=== PATIENT | female | born 1950 | race African-American/Black ===

== ENCOUNTER 2019-05-08 03:11 | Emergency (ER) | payer MEDICARE, MEDICAID ==
[~2019-05-08] VITALS: Ht 162.6 cm; Wt 51.0 kg
[~2019-05-08 03:11] MED LIST: ALBU6.7H INH; AZAT50TA24 PO; CARI-166 MT; FAMO40TA70 MT; HYDR200T35 PO; P20 MT
[2019-05-08] MEDS ORDERED: MORPHINE SULFATE 4 MG/ML CPJ (NOT FOR IM USE) IV STA (04:08)
[2019-05-08] MEDS ORDERED: ONDANSETRON HCL 4MG/2ML INJ IV STA (04:08)
[2019-05-08 06:52] VITALS: BP 128/83
== END 2019-05-08 06:55 | disposition home or self-care (01) ==
LOC: ER 03:11
DX: G89.29 Other chronic pain (principal); J44.9 Chronic obstructive pulmonary disease, unspecified; I10 Essential (primary) hypertension; M32.9 Systemic lupus erythematosus, unspecified; Z88.6 Allergy status to analgesic agent; Z88.1 Allergy status to other antibiotic agents; Z88.3 Allergy status to other anti-infective agents; Z88.0 Allergy status to penicillin; Z90.49 Acquired absence of other specified parts of digestive tract
CPT/HCPCS: 96374; 96375; 99283; J2270; J2405

== ENCOUNTER 2019-08-31 10:17 | Inpatient (IN) | payer MEDICARE, MEDICAID ==
[~2019-08-31] VITALS: Ht 170.2 cm; Wt 60.3 kg
[~2019-08-31 10:17] MED LIST changes: -FAMO40TA70 MT; -P20 MT
[2019-08-31] MEDS ORDERED: METHYLPREDNISOLONE SOD SUCC 125 MG/2 ML VIAL IV STA (10:33)
[2019-08-31] MEDS ORDERED: MAGNESIUM 2 G PREMIX 50 ML IV STA (10:33)
[2019-08-31] MEDS ORDERED: IPRATROPIUM BROMIDE (0.02%) 0.5MG/2.5ML NEB HHN STA (10:43)
[2019-08-31] MEDS ORDERED: ALBUTEROL (0.083%) 2.5MG/3ML NEB HHN STA (10:43)
[2019-08-31] MEDS ORDERED: LEVOFLOXACIN 500MG PREMIX 100 ML IV ONE (11:30)
[2019-08-31] MEDS ORDERED: MORPHINE SULFATE 4 MG/ML CPJ (NOT FOR IM USE) IV ONE (11:30)
[2019-08-31] MEDS ORDERED: ONDANSETRON HCL 4MG/2ML INJ IV ONE (11:30)
[2019-08-31 11:31] LABS: BASOPHILS % 0.9 % (0.0-2.0); EOSINOPHILS % 0.8 % (0.0-5.0); HEMOGLOBIN. 11.8 g/dL (12.0-16.0); LYMPHOCYTES % 35.5 % (20.0-50.0); MEAN CORPUSCULAR HEMOGLOBIN 26.4 pg (28.0-32.0); MEAN CORPUSCULAR VOLUME 82.9 fL (81.0-99.0); MEAN PLATELET VOLUME 7.2 fl (7.4-10.4); MONOCYTES % 13.7 % (2.0-8.0); NEUTROPHILS % 49.1 % (40.0-76.0); PLATELET 366 x1000/uL (130-400); RED BLOOD CELL COUNT 4.46 mill/uL (4.2-5.4); RED CELL DISTRIBUTION WIDTH 20.9 % (11.6-14.6)
[2019-08-31 11:37] LABS: CHLORIDE 111 mEq/L (98-107); INR 1.1; PROTHROMBIN TIME 11.7 sec (9.6-11.0)
[2019-08-31 12:17] LABS: CLARITY URINE CLEAR (CLEAR); COLOR URINE YELLOW (YELLOW); KETONES URINE NEGATIVE (NEGATIVE); LEUKOCYTE ESTERASE URINE NEGATIVE (NEGATIVE); NITRITE URINE NEGATIVE (NEGATIVE); OCCULT BLOOD URINE NEGATIVE (NEGATIVE); PH URINE 5.5 (4.5-8.0); PROTEIN URINE TRACE (NEGATIVE); SPECIFIC GRAVITY URINE 1.019 (1.005-1.030)
[2019-08-31 13:09] LABS: *AMPHETAMINES SCREEN URINE NEGATIVE (NEGATIVE); *BARBITURATES SCREEN URINE NEGATIVE (NEGATIVE); *BENZODIAZEPINES SCREEN URINE NEGATIVE (NEGATIVE); *COCAINE SCREEN URINE NEGATIVE (NEGATIVE)
[2019-08-31 13:11] LABS: CANNABINOID URINE SCREEN NEGATIVE (NEGATIVE); METHADONE URINE SCREEN NEGATIVE (NEGATIVE); OPIATES URINE SCREEN PRESUMTIVE POSITIVE (NEGATIVE); PHENCYCLIDINE URINE SCREEN NEGATIVE (NEGATIVE)
[2019-08-31 14:25] VITALS: BP 133/76
[2019-08-31 15:00] VITALS: BP 133/76
[2019-08-31 16:00] VITALS: BP 139/71
[2019-08-31] MEDS ORDERED: DIPHENHYDRAMINE 50MG/ML VIAL IV PRN (17:45)
[2019-08-31 17:53] VITALS: BP 142/75
[2019-08-31] MEDS: MORPHINE SULFATE 2 MG/ML CPJ (NOT FOR IM USE) IV PRN ×2 (17:55→22:09)
[2019-08-31] MEDS ORDERED: OXYC30TA89 MT (18:05)
[2019-08-31] MEDS: SODIUM CHLORIDE 0.9% 1,000 ML IV SCH (19:23)
[2019-08-31] MEDS ORDERED: DOCUSATE SODIUM 100MG CAPSULE PO PRN (19:30)
[2019-08-31] MEDS ORDERED: GUAIFENESIN 200MG/10ML SUGAR FREE UDC PO PRN (19:30)
[2019-08-31] MEDS ORDERED: ACETAMINOPHEN 325MG TABLET PO PRN (19:30)
[2019-08-31] MEDS ORDERED: ONDANSETRON HCL 4MG/2ML INJ IV PRN (19:30)
[2019-08-31 20:00] VITALS: BP 122/72
[2019-08-31] MEDS: METHYLPREDNISOLONE SOD SUCC 40 MG/ML VIAL IV SCH (21:05)
[2019-08-31] MEDS: ENOXAPARIN 40MG/0.4ML SYR SUBCUT SCH (21:07)
[2019-08-31] MEDS: CARISOPRODOL 350 MG TABLET PO PRN (21:07)
[2019-09-01] VITALS (7 sets, daily range): BP systolic 111–142; BP diastolic 62–78
[2019-09-01 00:42] LABS: CREATINE KINASE 91 IU/L (26-192)
[2019-09-01 00:44] LABS: CREATINE KINASE MB FRACTION 1.7 ng/mL (0.5-3.6)
[2019-09-01] MEDS: MORPHINE SULFATE 2 MG/ML CPJ (NOT FOR IM USE) IV PRN ×2 (02:22→06:43)
[2019-09-01] MEDS: METHYLPREDNISOLONE SOD SUCC 40 MG/ML VIAL IV SCH ×3 (02:22→20:20)
[2019-09-01 07:15] LABS: BASOPHILS % 2.4 % (0.0-2.0); EOSINOPHILS % 0.3 % (0.0-5.0); HEMATOCRIT. 34.8 % (36.0-48.0); HEMOGLOBIN. 11.4 g/dL (12.0-16.0); LYMPHOCYTES % 20.7 % (20.0-50.0); MEAN CORPUSCULAR HEMOGLOBIN 26.8 pg (28.0-32.0); MEAN CORPUSCULAR VOLUME 81.8 fL (81.0-99.0); MEAN PLATELET VOLUME 7.7 fl (7.4-10.4); MONOCYTES % 7.5 % (2.0-8.0); NEUTROPHILS % 69.1 % (40.0-76.0); PLATELET 331 x1000/uL (130-400); RED BLOOD CELL COUNT 4.26 mill/uL (4.2-5.4); RED CELL DISTRIBUTION WIDTH 20.6 % (11.6-14.6)
[2019-09-01] MEDS: IPRATROPIUM/ALBUTEROL 0.5-3(2.5)MG/3ML NEB HHN SCH ×4 (07:36→20:39)
[2019-09-01 07:38] LABS: CHLORIDE 112 mEq/L (98-107)
[2019-09-01 07:46] LABS: CREATINE KINASE 80 IU/L (26-192)
[2019-09-01 07:48] LABS: CREATINE KINASE MB FRACTION 1.5 ng/mL (0.5-3.6)
[2019-09-01] MEDS: AZATHIOPRINE 50MG TABLET PO SCH ×2 (08:38→17:26)
[2019-09-01] MEDS: HYDROXYCHLOROQUINE SULFATE 200MG TABLET PO SCH ×2 (08:38→17:26)
[2019-09-01] MEDS: SODIUM CHLORIDE 0.9% 1,000 ML IV SCH ×2 (08:38→20:20)
[2019-09-01] MEDS: CARISOPRODOL 350 MG TABLET PO PRN ×2 (08:38→17:26)
[2019-09-01] MEDS: MORPHINE SULFATE 4 MG/ML CPJ (NOT FOR IM USE) IV PRN ×4 (10:46→22:45)
[2019-09-01] MEDS: LEVOFLOXACIN 500MG PREMIX 100 ML IV SCH (12:15)
[2019-09-01] MEDS: ENOXAPARIN 40MG/0.4ML SYR SUBCUT SCH (20:20)
[2019-09-02] VITALS: BP 100/70
[2019-09-02] MEDS: IPRATROPIUM/ALBUTEROL 0.5-3(2.5)MG/3ML NEB HHN SCH ×6 (00:31→20:04)
[2019-09-02] MEDS: METHYLPREDNISOLONE SOD SUCC 40 MG/ML VIAL IV SCH ×3 (02:43→20:20)
[2019-09-02] MEDS: MORPHINE SULFATE 4 MG/ML CPJ (NOT FOR IM USE) IV PRN ×5 (02:45→20:22)
[2019-09-02 04:00] VITALS: BP 139/88
[2019-09-02] MEDS: SODIUM CHLORIDE 0.9% 1,000 ML IV SCH ×2 (09:15→22:10)
[2019-09-02] MEDS: HYDROXYCHLOROQUINE SULFATE 200MG TABLET PO SCH ×2 (09:15→17:47)
[2019-09-02] MEDS: AZATHIOPRINE 50MG TABLET PO SCH ×2 (09:15→17:47)
[2019-09-02] MEDS: CARISOPRODOL 350 MG TABLET PO PRN ×2 (09:15→17:47)
[2019-09-02] MEDS: LEVOFLOXACIN 500MG PREMIX 100 ML IV SCH (11:10)
[2019-09-02 12:00] VITALS: BP 142/83
[2019-09-02 16:13] VITALS: BP 142/78
[2019-09-02 20:00] VITALS: BP 139/75
[2019-09-02] MEDS: ENOXAPARIN 40MG/0.4ML SYR SUBCUT SCH (20:21)
[2019-09-03] VITALS: BP 156/83
[2019-09-03] MEDS: IPRATROPIUM/ALBUTEROL 0.5-3(2.5)MG/3ML NEB HHN SCH ×6 (00:21→21:50)
[2019-09-03] MEDS: MORPHINE SULFATE 4 MG/ML CPJ (NOT FOR IM USE) IV PRN ×6 (00:33→21:58)
[2019-09-03 04:00] VITALS: BP 159/80
[2019-09-03] MEDS: METHYLPREDNISOLONE SOD SUCC 40 MG/ML VIAL IV SCH ×3 (04:37→20:31)
[2019-09-03] MEDS: HYDROXYCHLOROQUINE SULFATE 200MG TABLET PO SCH ×2 (09:10→17:41)
[2019-09-03] MEDS: AZATHIOPRINE 50MG TABLET PO SCH ×2 (09:10→17:41)
[2019-09-03] MEDS: CLONIDINE 0.1MG TABLET PO PRN (09:10)
[2019-09-03] MEDS: SODIUM CHLORIDE 0.9% 1,000 ML IV SCH ×2 (09:19→22:00)
[2019-09-03] MEDS: CARISOPRODOL 350 MG TABLET PO PRN (10:29)
[2019-09-03] MEDS: LEVOFLOXACIN 500MG PREMIX 100 ML IV SCH (11:44)
[2019-09-03 20:00] VITALS: BP 139/80
[2019-09-03] MEDS: ENOXAPARIN 40MG/0.4ML SYR SUBCUT SCH (20:32)
[2019-09-04] VITALS: BP 141/84
[2019-09-04] MEDS: IPRATROPIUM/ALBUTEROL 0.5-3(2.5)MG/3ML NEB HHN SCH ×5 (01:49→17:13)
[2019-09-04] MEDS: MORPHINE SULFATE 4 MG/ML CPJ (NOT FOR IM USE) IV PRN ×4 (01:59→16:11)
[2019-09-04 04:00] VITALS: BP 163/88
[2019-09-04] MEDS: METHYLPREDNISOLONE SOD SUCC 40 MG/ML VIAL IV SCH ×2 (04:11→11:58)
[2019-09-04] MEDS: CLONIDINE 0.1MG TABLET PO PRN (04:40)
[2019-09-04] MEDS: HYDROXYCHLOROQUINE SULFATE 200MG TABLET PO SCH ×2 (08:58→16:08)
[2019-09-04] MEDS: AZATHIOPRINE 50MG TABLET PO SCH ×2 (08:58→16:08)
[2019-09-04] MEDS: CARISOPRODOL 350 MG TABLET PO PRN (09:01)
[2019-09-04] MEDS ORDERED: LEVOFLOXACIN 500MG TABLET PO SCH (11:00)
[2019-09-04 16:17] VITALS: BP 145/96
== END 2019-09-04 18:09 | disposition home or self-care (01) | DRG 720 ==
LOC: ER 10:26 → 5WST 12:03 → EDBEDREQ 12:10 → EDBEDREQTM 12:10 → EDBEDREQSVC 12:14 → ENRESERV 13:12
PROVIDERS: ADMIT Internal Medicine; ATTEND Internal Medicine
DX: A41.9 Sepsis, unspecified organism (principal); J96.01 Acute respiratory failure with hypoxia; J84.9 Interstitial pulmonary disease, unspecified; E44.0 Moderate protein-calorie malnutrition; M32.9 Systemic lupus erythematosus, unspecified; F11.20 Opioid dependence, uncomplicated; J44.0 Chronic obstructive pulmonary disease with (acute) lower respiratory infection; J44.1 Chronic obstructive pulmonary disease with (acute) exacerbation; J20.9 Acute bronchitis, unspecified; I10 Essential (primary) hypertension; B18.2 Chronic viral hepatitis C; G89.29 Other chronic pain; Z87.01 Personal history of pneumonia (recurrent); Z87.891 Personal history of nicotine dependence; Z88.6 Allergy status to analgesic agent; Z88.1 Allergy status to other antibiotic agents; Z88.0 Allergy status to penicillin; Z88.8 Allergy status to other drugs, medicaments and biological substances; Z79.899 Other long term (current) drug therapy
CPT/HCPCS: 36415; 71045; 80048; 80053; 80305; 81003; 82550; 82553; 83605; 83880; 84145; 84484; 85025; 87804; 93005; 93970; 94640; 96365; 99291; C1893; J1650; J1956; J2270; J2405; J2920; J2930; J3475; J7030; J7500; J7611; J7620

== ENCOUNTER 2019-09-07 07:38 | Emergency (ER) | payer MEDICARE, MEDICAID ==
[~2019-09-07] VITALS: Ht 165.1 cm; Wt 60.0 kg
[~2019-09-07 07:38] MED LIST changes: +OXYC30TA89 MT
[2019-09-07] MEDS ORDERED: HYDROCODONE/ACETAMINOPHEN 5/325MG TABLET PO STA (09:13)
[2019-09-07] MEDS ORDERED: FAMOTIDINE 20MG/2ML VIAL IV STA (09:13)
[2019-09-07] MEDS ORDERED: SODIUM CHLORIDE 0.9% 1,000 ML IV ONE (09:13)
[2019-09-07] MEDS ORDERED: IPRATROPIUM BROMIDE (0.02%) 0.5MG/2.5ML NEB HHN STA (09:32)
[2019-09-07] MEDS ORDERED: ALBUTEROL (0.083%) 2.5MG/3ML NEB HHN STA (09:32)
[2019-09-07 09:45] LABS: MEAN CORPUSCULAR HEMOGLOBIN 26.2 pg (28.0-32.0); MEAN CORPUSCULAR VOLUME 83.9 fL (81.0-99.0); MEAN PLATELET VOLUME 8.1 fl (7.4-10.4); PLATELET 263 x1000/uL (130-400); RED BLOOD CELL COUNT 5.72 mill/uL (4.2-5.4); RED CELL DISTRIBUTION WIDTH 20.6 % (11.6-14.6)
[2019-09-07] MEDS ORDERED: ALBUTEROL (0.083%) 2.5MG/3ML NEB ONE (09:52)
[2019-09-07 09:53] LABS: CHLORIDE 109 mEq/L (98-107); INR 1.1; PROTHROMBIN TIME 11.3 sec (9.6-11.0)
[2019-09-07 09:57] LABS: ETHANOL BLOOD < 10 mg/dL
[2019-09-07 10:27] LABS: CLARITY URINE CLOUDY (CLEAR); COLOR URINE YELLOW (YELLOW); KETONES URINE NEGATIVE (NEGATIVE); LEUKOCYTE ESTERASE URINE 1+ (NEGATIVE); NITRITE URINE NEGATIVE (NEGATIVE); OCCULT BLOOD URINE TRACE (NEGATIVE); PH URINE 5.5 (4.5-8.0); PROTEIN URINE 1+ (NEGATIVE); SPECIFIC GRAVITY URINE 1.022 (1.005-1.030); UROBILINOGEN URINE 0.2 E.U./dL (0.2-1.0)
[2019-09-07 10:45] LABS: *AMPHETAMINES SCREEN URINE NEGATIVE (NEGATIVE); *BARBITURATES SCREEN URINE NEGATIVE (NEGATIVE); *BENZODIAZEPINES SCREEN URINE NEGATIVE (NEGATIVE); *COCAINE SCREEN URINE NEGATIVE (NEGATIVE); CANNABINOID URINE SCREEN NEGATIVE (NEGATIVE); METHADONE URINE SCREEN NEGATIVE (NEGATIVE); OPIATES URINE SCREEN PRESUMTIVE POSITIVE (NEGATIVE); PHENCYCLIDINE URINE SCREEN NEGATIVE (NEGATIVE)
[2019-09-07 12:12] LABS: PLATELET ESTIMATE NORMAL
[2019-09-07 13:28] VITALS: BP 146/71
== END 2019-09-07 13:28 | disposition home or self-care (01) ==
LOC: ER 08:13
DX: J44.1 Chronic obstructive pulmonary disease with (acute) exacerbation (principal); G89.29 Other chronic pain; R10.84 Generalized abdominal pain; R19.7 Diarrhea, unspecified; R05 Cough; I10 Essential (primary) hypertension; R06.2 Wheezing; M32.9 Systemic lupus erythematosus, unspecified; Z88.0 Allergy status to penicillin; Z88.6 Allergy status to analgesic agent; Z88.1 Allergy status to other antibiotic agents; Z79.899 Other long term (current) drug therapy; Z87.19 Personal history of other diseases of the digestive system
CPT/HCPCS: 36415; 71045; 74176; 80053; 80305; 80320; 81003; 83690; 84484; 85025; 85610; 93005; 94640; 96361; 96374; 99284; J3490; J7030; J7611; Z7610; G0480

== ENCOUNTER 2019-09-09 08:26 | Emergency (ER) | payer MEDICARE, MEDICAID ==
[~2019-09-09] VITALS: Ht 170.2 cm; Wt 55.0 kg
[2019-09-09] MEDS ORDERED: HYDROCODONE/ACETAMINOPHEN 5/325MG TABLET PO ONE (11:45)
[2019-09-09] MEDS ORDERED: ALBUTEROL (0.083%) 2.5MG/3ML NEB HHN STA (11:45)
[2019-09-09] MEDS ORDERED: METHYLPREDNISOLONE SOD SUCC 125 MG/2 ML VIAL IV STA (11:45)
[2019-09-09] MEDS ORDERED: IPRATROPIUM BROMIDE (0.02%) 0.5MG/2.5ML NEB HHN STA (11:45)
[2019-09-09] MEDS ORDERED: PREDNISONE 20MG TABLET PO ONE (12:00)
[2019-09-09 15:22] LABS: BASOPHILS % 1.9 % (0.0-2.0); EOSINOPHILS % 0.4 % (0.0-5.0); HEMATOCRIT. 41.1 % (36.0-48.0); HEMOGLOBIN. 13.3 g/dL (12.0-16.0); LYMPHOCYTES % 24.9 % (20.0-50.0); MEAN CORPUSCULAR VOLUME 83.5 fL (81.0-99.0); MEAN PLATELET VOLUME 8.2 fl (7.4-10.4); MONOCYTES % 7.3 % (2.0-8.0); NEUTROPHILS % 65.5 % (40.0-76.0); PLATELET 253 x1000/uL (130-400); RED BLOOD CELL COUNT 4.92 mill/uL (4.2-5.4); RED CELL DISTRIBUTION WIDTH 20.7 % (11.6-14.6)
[2019-09-09 15:36] LABS: CHLORIDE 109 mEq/L (98-107)
[2019-09-09] MEDS ORDERED: HYDROCODONE/ACETAMINOPHEN 10/325MG TABLET PO NR (19:15)
[2019-09-09 19:28] VITALS: BP 115/69
== END 2019-09-09 19:34 | disposition home or self-care (01) ==
LOC: ER 08:26
DX: G89.29 Other chronic pain (principal); J44.9 Chronic obstructive pulmonary disease, unspecified; M32.9 Systemic lupus erythematosus, unspecified; Z88.6 Allergy status to analgesic agent; Z88.0 Allergy status to penicillin; Z88.3 Allergy status to other anti-infective agents; Z87.19 Personal history of other diseases of the digestive system
CPT/HCPCS: 36415; 71045; 80053; 85025; 94640; 99284; J7512; J7611; Z7610

== ENCOUNTER 2019-09-16 09:06 | Emergency (ER) | payer MEDICARE, MEDICAID | END 2019-09-16 11:05 | disposition left against medical advice (07) | LOC: ER 09:06 | DX: Z53.21 Procedure and treatment not carried out due to patient leaving prior to being seen by health care provider (principal) ==

== ENCOUNTER 2019-10-06 10:23 | Emergency (ER) | payer MEDICARE, MEDICAID ==
[~2019-10-06] VITALS: Ht 165.1 cm; Wt 60.0 kg
[~2019-10-06 10:23] MED LIST changes: -ALBU6.7H INH; +ALBU6.7H11 INH; -CARI-166 MT; +CARI350T28 MT
[2019-10-06] MEDS ORDERED: METHYLPREDNISOLONE SOD SUCC 125 MG/2 ML VIAL IV STA (11:41)
[2019-10-06] MEDS ORDERED: IPRATROPIUM BROMIDE (0.02%) 0.5MG/2.5ML NEB HHN STA (11:41)
[2019-10-06] MEDS ORDERED: ALBUTEROL (0.083%) 2.5MG/3ML NEB HHN STA (11:41)
[2019-10-06] MEDS ORDERED: OXYCODONE HCL/ACETAMINOPHEN 5/325MG TABLET PO ONE (13:00)
[2019-10-06 13:45] VITALS: BP 126/81
== END 2019-10-06 14:28 | disposition left against medical advice (07) ==
LOC: ER 10:23
DX: J44.9 Chronic obstructive pulmonary disease, unspecified (principal); G89.29 Other chronic pain; R06.2 Wheezing; Z76.5 Malingerer [conscious simulation]; Z88.0 Allergy status to penicillin; Z88.6 Allergy status to analgesic agent; Z79.899 Other long term (current) drug therapy
CPT/HCPCS: 71045; 93005; 94640; 99283; J2930; J7611

== ENCOUNTER 2019-10-08 07:10 | Inpatient (IN) | payer MEDICARE, MEDICAID ==
[~2019-10-08] VITALS: Ht 170.2 cm; Wt 54.4 kg
[2019-10-08] MEDS ORDERED: IPRATROPIUM BROMIDE (0.02%) 0.5MG/2.5ML NEB HHN STA (07:41)
[2019-10-08] MEDS ORDERED: METHYLPREDNISOLONE SOD SUCC 125 MG/2 ML VIAL IV STA (07:41)
[2019-10-08] MEDS ORDERED: ALBUTEROL (0.083%) 2.5MG/3ML NEB HHN STA (07:41)
[2019-10-08] MEDS ORDERED: MORPHINE SULFATE 4 MG/ML CPJ (NOT FOR IM USE) IV ONE ×2 (07:45→09:45)
[2019-10-08 08:34] LABS: BASOPHILS % 1.9 % (0.0-2.0); EOSINOPHILS % 0.7 % (0.0-5.0); HEMATOCRIT. 36.6 % (36.0-48.0); HEMOGLOBIN. 11.4 g/dL (12.0-16.0); LYMPHOCYTES % 26.7 % (20.0-50.0); MEAN PLATELET VOLUME 7.8 fl (7.4-10.4); MONOCYTES % 12.5 % (2.0-8.0); NEUTROPHILS % 58.2 % (40.0-76.0); PLATELET 261 x1000/uL (130-400); RED BLOOD CELL COUNT 4.36 mill/uL (4.2-5.4); RED CELL DISTRIBUTION WIDTH 21.4 % (11.6-14.6)
[2019-10-08 08:45] LABS: CHLORIDE 113 mEq/L (98-107)
[2019-10-08] MEDS ORDERED: DOCUSATE SODIUM 100MG CAPSULE PO PRN (09:45)
[2019-10-08] MEDS ORDERED: CLONIDINE 0.1MG TABLET PO PRN (09:45)
[2019-10-08] MEDS ORDERED: LORAZEPAM 2MG/ML CPJ IV PRN (09:45)
[2019-10-08] MEDS ORDERED: GUAIFENESIN 200MG/10ML SUGAR FREE UDC PO PRN (09:45)
[2019-10-08] MEDS ORDERED: NA PHOS,M-B/NA PHOS,DI-BA ENEMA 118ML PR PRN (09:45)
[2019-10-08] MEDS ORDERED: IPRATROPIUM/ALBUTEROL 0.5-3(2.5)MG/3ML NEB NEB PRN (09:45)
[2019-10-08] MEDS ORDERED: MAGNESIUM/ALUMINUM HYDROXIDE/SIMETHICONE 30ML UDC PO PRN (09:45)
[2019-10-08] MEDS ORDERED: ONDANSETRON HCL 4MG/2ML INJ IV PRN (09:45)
[2019-10-08] MEDS ORDERED: ACETAMINOPHEN 325MG TABLET PO PRN (09:45)
[2019-10-08] MEDS ORDERED: DIPHENHYDRAMINE 50MG/ML VIAL IV PRN (09:45)
[2019-10-08] MEDS ORDERED: LEVOFLOXACIN 500MG PREMIX 100 ML IV SCH (11:15)
[2019-10-08] MEDS: ENOXAPARIN 40MG/0.4ML SYR SUBCUT SCH (11:40)
[2019-10-08] MEDS: MORPHINE SULFATE 2 MG/ML CPJ (NOT FOR IM USE) IV PRN ×2 (14:43→20:00)
[2019-10-08] MEDS: METHYLPREDNISOLONE SOD SUCC 125 MG/2 ML VIAL IV SCH ×2 (14:43→21:47)
[2019-10-08] MEDS ORDERED: MONTELUKAST SODIUM 10MG TABLET PO NR (17:30)
[2019-10-08] MEDS: MONTELUKAST SODIUM 10MG TABLET PO SCH (18:27)
[2019-10-08] MEDS ORDERED: FAMOTIDINE 20MG TABLET PO SCH (21:00)
[2019-10-08] MEDS: HYDROCODONE/ACETAMINOPHEN 5/325MG TABLET PO PRN (21:51)
[2019-10-09] MEDS: MORPHINE SULFATE 2 MG/ML CPJ (NOT FOR IM USE) IV PRN ×6 (00:23→23:08)
[2019-10-09] MEDS: METHYLPREDNISOLONE SOD SUCC 125 MG/2 ML VIAL IV SCH ×3 (03:00→14:39)
[2019-10-09] MEDS: HYDROCODONE/ACETAMINOPHEN 5/325MG TABLET PO PRN ×2 (03:35→08:07)
[2019-10-09 04:02] LABS: CHLORIDE 110 mEq/L (98-107)
[2019-10-09 04:10] LABS: LDL CHOLESTEROL 88 mg/dL (5-100)
[2019-10-09 04:11] LABS: HDL CHOLESTEROL 74 mg/dL (40-59)
[2019-10-09 04:12] LABS: T4 FREE 1.27 ng/dL (0.76-1.46)
[2019-10-09 05:22] LABS: BASOPHILS % 0.8 % (0.0-2.0); HEMATOCRIT. 35.8 % (36.0-48.0); HEMOGLOBIN. 11.3 g/dL (12.0-16.0); LYMPHOCYTES % 11.8 % (20.0-50.0); MEAN CORPUSCULAR HEMOGLOBIN 26.1 pg (28.0-32.0); MEAN CORPUSCULAR VOLUME 82.6 fL (81.0-99.0); MEAN PLATELET VOLUME 8.3 fl (7.4-10.4); MONOCYTES % 4.3 % (2.0-8.0); NEUTROPHILS % 83.1 % (40.0-76.0); PLATELET 269 x1000/uL (130-400); RED BLOOD CELL COUNT 4.34 mill/uL (4.2-5.4); RED CELL DISTRIBUTION WIDTH 20.7 % (11.6-14.6)
[2019-10-09 08:00] VITALS: BP 140/89
[2019-10-09 09:00] VITALS: BP 140/89
[2019-10-09 09:25] VITALS: BP 140/89
[2019-10-09] MEDS ORDERED: FAMO-135 PO (09:53)
[2019-10-09] MEDS: MONTELUKAST SODIUM 10MG TABLET PO SCH (10:31)
[2019-10-09] MEDS: ENOXAPARIN 40MG/0.4ML SYR SUBCUT SCH (10:31)
[2019-10-09] MEDS: FAMOTIDINE 20MG TABLET PO SCH (10:32)
[2019-10-09] MEDS ORDERED: LEVOFLOXACIN 500MG PREMIX 100 ML IV SCH (11:00)
[2019-10-09] MEDS: LEVOFLOXACIN 250MG PREMIX 50 ML IV SCH (11:28)
[2019-10-09] MEDS: FLUTICASONE PROPIONATE 50MCG/SPRAY BOTTLE BOTHNSTRLS SCH ×2 (11:42→21:40)
[2019-10-09 12:00] VITALS: BP 156/81
[2019-10-09 16:00] VITALS: BP 99/65
[2019-10-09] MEDS: IPRATROPIUM/ALBUTEROL 0.5-3(2.5)MG/3ML NEB HHN SCH ×2 (16:14→19:50)
[2019-10-09] MEDS: PREDNISONE 20MG TABLET PO SCH (17:51)
[2019-10-09 20:00] VITALS: BP 146/81
[2019-10-09] MEDS: LORATADINE 10MG TABLET PO SCH (21:40)
[2019-10-10] VITALS: BP 158/79
[2019-10-10] MEDS: IPRATROPIUM/ALBUTEROL 0.5-3(2.5)MG/3ML NEB HHN SCH ×4 (00:14→20:35)
[2019-10-10] MEDS: MORPHINE SULFATE 2 MG/ML CPJ (NOT FOR IM USE) IV PRN ×5 (03:07→19:57)
[2019-10-10 04:00] VITALS: BP 169/89
[2019-10-10 08:00] VITALS: BP 145/76
[2019-10-10] MEDS: FAMOTIDINE 20MG TABLET PO SCH (08:48)
[2019-10-10] MEDS: PREDNISONE 20MG TABLET PO SCH ×2 (08:48→17:15)
[2019-10-10] MEDS: HYDROCODONE/ACETAMINOPHEN 5/325MG TABLET PO PRN ×4 (08:48→22:21)
[2019-10-10] MEDS: FLUTICASONE PROPIONATE 50MCG/SPRAY BOTTLE BOTHNSTRLS SCH ×2 (08:48→20:02)
[2019-10-10] MEDS: ENOXAPARIN 40MG/0.4ML SYR SUBCUT SCH (08:49)
[2019-10-10] MEDS: LEVOFLOXACIN 250MG PREMIX 50 ML IV SCH (11:32)
[2019-10-10 12:00] VITALS: BP 144/83
[2019-10-10 16:00] VITALS: BP 136/74
[2019-10-10] MEDS: MONTELUKAST SODIUM 10MG TABLET PO SCH (17:15)
[2019-10-10 20:00] VITALS: BP 136/76
[2019-10-10] MEDS: LORATADINE 10MG TABLET PO SCH (20:01)
[2019-10-11] VITALS: BP 141/83
[2019-10-11] MEDS: HYDROCODONE/ACETAMINOPHEN 5/325MG TABLET PO PRN ×3 (00:04→06:44)
[2019-10-11] MEDS: MORPHINE SULFATE 2 MG/ML CPJ (NOT FOR IM USE) IV PRN ×3 (00:09→08:17)
[2019-10-11 04:00] VITALS: BP 159/87
[2019-10-11 08:02] LABS: BASOPHILS % 0.8 % (0.0-2.0); HEMATOCRIT. 35.7 % (36.0-48.0); HEMOGLOBIN. 11.2 g/dL (12.0-16.0); LYMPHOCYTES % 11.7 % (20.0-50.0); MEAN CORPUSCULAR HEMOGLOBIN 26.3 pg (28.0-32.0); MEAN CORPUSCULAR VOLUME 83.6 fL (81.0-99.0); MEAN PLATELET VOLUME 8.6 fl (7.4-10.4); MONOCYTES % 9.1 % (2.0-8.0); NEUTROPHILS % 78.4 % (40.0-76.0); PLATELET 169 x1000/uL (130-400); RED BLOOD CELL COUNT 4.27 mill/uL (4.2-5.4); RED CELL DISTRIBUTION WIDTH 21.1 % (11.6-14.6)
[2019-10-11] MEDS: IPRATROPIUM/ALBUTEROL 0.5-3(2.5)MG/3ML NEB HHN SCH (08:10)
[2019-10-11 08:13] VITALS: BP 155/88
[2019-10-11] MEDS: PREDNISONE 20MG TABLET PO SCH (08:16)
[2019-10-11] MEDS: FAMOTIDINE 20MG TABLET PO SCH (08:16)
[2019-10-11] MEDS: ENOXAPARIN 40MG/0.4ML SYR SUBCUT SCH (08:17)
[2019-10-11] MEDS: FLUTICASONE PROPIONATE 50MCG/SPRAY BOTTLE BOTHNSTRLS SCH (08:17)
[2019-10-11 08:57] VITALS: BP 155/88
[2019-10-11 09:07] LABS: CHLORIDE 110 mEq/L (98-107)
[2019-10-11] MEDS ORDERED: LEVOFLOXACIN 250MG TABLET PO SCH (11:00)
== END 2019-10-11 11:00 | disposition home or self-care (01) | DRG 133 ==
LOC: ER 07:39 → 5WST 09:43 → EDBEDREQ 10-09 02:06 → CANRESERV 10-09 07:44 → ENRESERV 10-09 07:44
PROVIDERS: ADMIT Internal Medicine; ATTEND Internal Medicine
DX: J96.00 Acute respiratory failure, unspecified whether with hypoxia or hypercapnia (principal); J18.9 Pneumonia, unspecified organism; I11.0 Hypertensive heart disease with heart failure; J44.0 Chronic obstructive pulmonary disease with (acute) lower respiratory infection; I50.9 Heart failure, unspecified; M32.9 Systemic lupus erythematosus, unspecified; J45.901 Unspecified asthma with (acute) exacerbation; J44.1 Chronic obstructive pulmonary disease with (acute) exacerbation; R65.10 Systemic inflammatory response syndrome (SIRS) of non-infectious origin without acute organ dysfunction; J32.9 Chronic sinusitis, unspecified; B19.20 Unspecified viral hepatitis C without hepatic coma; E87.6 Hypokalemia; I25.10 Atherosclerotic heart disease of native coronary artery without angina pectoris; Z79.899 Other long term (current) drug therapy; Z87.891 Personal history of nicotine dependence; Z88.6 Allergy status to analgesic agent; Z88.1 Allergy status to other antibiotic agents; Z88.0 Allergy status to penicillin; Z88.7 Allergy status to serum and vaccine
CPT/HCPCS: 36415; 71045; 80048; 80053; 80061; 83880; 84439; 84443; 84484; 85025; 87804; 93005; 94640; 94644; 99285; J1650; J1956; J2270; J2930; J7040; J7512; J7611; J7620

== ENCOUNTER 2019-10-31 07:20 | Inpatient (IN) | payer MEDICARE, MEDICAID ==
[~2019-10-31] VITALS: Ht 170.2 cm; Wt 56.7 kg
[~2019-10-31 07:20] MED LIST changes: +FAMO-135 PO
[2019-10-31] MEDS ORDERED: MORPHINE SULFATE 4 MG/ML CPJ (NOT FOR IM USE) IV STA (07:38)
[2019-10-31] MEDS ORDERED: DIPHENHYDRAMINE 50MG/ML VIAL IV ONE (07:45)
[2019-10-31 08:19] LABS: HEMATOCRIT. 37.5 % (36.0-48.0); MEAN CORPUSCULAR HEMOGLOBIN 26.6 pg (28.0-32.0); MEAN CORPUSCULAR VOLUME 83.5 fL (81.0-99.0); MEAN PLATELET VOLUME 7.9 fl (7.4-10.4); PLATELET 283 x1000/uL (130-400); RED BLOOD CELL COUNT 4.49 mill/uL (4.2-5.4); RED CELL DISTRIBUTION WIDTH 20.4 % (11.6-14.6)
[2019-10-31 08:22] LABS: CHLORIDE 111 mEq/L (98-107); INR 1.1; PROTHROMBIN TIME 11.9 sec (9.6-11.0)
[2019-10-31 08:58] LABS: PLATELET ESTIMATE NORMAL
[2019-10-31] MEDS ORDERED: IPRATROPIUM/ALBUTEROL 0.5-3(2.5)MG/3ML NEB HHN PRN (11:15)
[2019-10-31] MEDS ORDERED: ACETAMINOPHEN 325MG TABLET PO PRN (11:15)
[2019-10-31] MEDS ORDERED: MORPHINE SULFATE 4 MG/ML CPJ (NOT FOR IM USE) IV ONE (11:30)
[2019-10-31 12:02] LABS: CLARITY URINE CLOUDY (CLEAR); COLOR URINE DARK YELLOW (YELLOW); KETONES URINE NEGATIVE (NEGATIVE); LEUKOCYTE ESTERASE URINE TRACE (NEGATIVE); NITRITE URINE NEGATIVE (NEGATIVE); OCCULT BLOOD URINE NEGATIVE (NEGATIVE); PH URINE 5.5 (4.5-8.0); PROTEIN URINE NEGATIVE (NEGATIVE); SPECIFIC GRAVITY URINE 1.019 (1.005-1.030)
[2019-10-31] MEDS: MORPHINE SULFATE 2 MG/ML CPJ (NOT FOR IM USE) IV PRN ×3 (12:04→23:05)
[2019-10-31] MEDS: ONDANSETRON HCL 4MG/2ML INJ IV PRN ×2 (12:05→23:05)
[2019-10-31] MEDS: METHYLPREDNISOLONE SOD SUCC 40 MG/ML VIAL IV SCH ×2 (13:00→23:04)
[2019-10-31 21:25] VITALS: BP 116/72
[2019-11-01] VITALS: BP 104/63
[2019-11-01] MEDS ORDERED: ALBUTEROL 6.7GM HFA INHALER INH SCH (02:30)
[2019-11-01] MEDS: MORPHINE SULFATE 2 MG/ML CPJ (NOT FOR IM USE) IV PRN ×2 (03:25→08:16)
[2019-11-01 04:00] VITALS: BP 123/67
[2019-11-01] MEDS: METHYLPREDNISOLONE SOD SUCC 40 MG/ML VIAL IV SCH ×3 (06:11→20:56)
[2019-11-01 08:00] VITALS: BP 137/58
[2019-11-01] MEDS: AZATHIOPRINE 50MG TABLET PO SCH ×2 (08:15→16:15)
[2019-11-01] MEDS: CLOPIDOGREL 75MG TABLET PO SCH (08:15)
[2019-11-01] MEDS: HYDROXYCHLOROQUINE SULFATE 200MG TABLET PO SCH ×2 (08:15→16:15)
[2019-11-01 08:16] LABS: BASOPHILS % 0.6 % (0.0-2.0); EOSINOPHILS % 0.1 % (0.0-5.0); HEMATOCRIT. 36.8 % (36.0-48.0); HEMOGLOBIN. 11.6 g/dL (12.0-16.0); LYMPHOCYTES % 13.4 % (20.0-50.0); MEAN CORPUSCULAR HEMOGLOBIN 26.2 pg (28.0-32.0); MEAN CORPUSCULAR VOLUME 82.9 fL (81.0-99.0); MEAN PLATELET VOLUME 8.1 fl (7.4-10.4); MONOCYTES % 4.9 % (2.0-8.0); PLATELET 317 x1000/uL (130-400); RED BLOOD CELL COUNT 4.44 mill/uL (4.2-5.4); RED CELL DISTRIBUTION WIDTH 20.2 % (11.6-14.6)
[2019-11-01] MEDS: FAMOTIDINE 20MG TABLET PO SCH (08:16)
[2019-11-01 08:23] LABS: CHLORIDE 110 mEq/L (98-107)
[2019-11-01 12:30] VITALS: BP 126/83
[2019-11-01] MEDS: MORPHINE SULFATE 4 MG/ML CPJ (NOT FOR IM USE) IV PRN ×3 (12:53→21:18)
[2019-11-01 15:57] VITALS: BP 131/72
[2019-11-01 20:00] VITALS: BP 133/77
[2019-11-02] VITALS: BP 154/88
[2019-11-02] MEDS: MORPHINE SULFATE 4 MG/ML CPJ (NOT FOR IM USE) IV PRN ×6 (01:35→22:14)
[2019-11-02 04:00] VITALS: BP 138/77
[2019-11-02] MEDS: METHYLPREDNISOLONE SOD SUCC 40 MG/ML VIAL IV SCH ×3 (05:45→14:04)
[2019-11-02 08:00] VITALS: BP 147/88
[2019-11-02] MEDS: FAMOTIDINE 20MG TABLET PO SCH (09:40)
[2019-11-02] MEDS: CLOPIDOGREL 75MG TABLET PO SCH (09:40)
[2019-11-02] MEDS: AZATHIOPRINE 50MG TABLET PO SCH ×2 (09:41→17:49)
[2019-11-02] MEDS: HYDROXYCHLOROQUINE SULFATE 200MG TABLET PO SCH ×2 (09:41→17:49)
[2019-11-02 11:18] LABS: HEMATOCRIT. 37.2 % (36.0-48.0); HEMOGLOBIN. 11.8 g/dL (12.0-16.0); MEAN CORPUSCULAR HEMOGLOBIN 26.1 pg (28.0-32.0); MEAN CORPUSCULAR VOLUME 82.1 fL (81.0-99.0); PLATELET 368 x1000/uL (130-400); RED BLOOD CELL COUNT 4.53 mill/uL (4.2-5.4); RED CELL DISTRIBUTION WIDTH 19.6 % (11.6-14.6)
[2019-11-02 11:22] LABS: CHLORIDE 108 mEq/L (98-107)
[2019-11-02 12:00] VITALS: BP 148/61
[2019-11-02 16:00] VITALS: BP 136/76
[2019-11-02 20:00] VITALS: BP_SYST 104; BP_SYST 110; BP_DIAS 59; BP_DIAS 60
[2019-11-02 20:33] LABS: PLATELET ESTIMATE NORMAL
[2019-11-02] MEDS: DICLOFENAC SODIUM 75MG DR (EC) TABLET PO SCH (21:53)
[2019-11-03] VITALS: BP 110/60
[2019-11-03] MEDS: MORPHINE SULFATE 4 MG/ML CPJ (NOT FOR IM USE) IV PRN ×4 (02:14→14:37)
[2019-11-03 04:00] VITALS: BP 138/71
[2019-11-03 06:19] LABS: BASOPHILS % 0.4 % (0.0-2.0); EOSINOPHILS % 0.1 % (0.0-5.0); HEMATOCRIT. 34.7 % (36.0-48.0); HEMOGLOBIN. 11.2 g/dL (12.0-16.0); LYMPHOCYTES % 19.8 % (20.0-50.0); MEAN CORPUSCULAR HEMOGLOBIN 26.7 pg (28.0-32.0); MEAN PLATELET VOLUME 7.9 fl (7.4-10.4); MONOCYTES % 10.9 % (2.0-8.0); NEUTROPHILS % 68.8 % (40.0-76.0); PLATELET 326 x1000/uL (130-400); RED BLOOD CELL COUNT 4.18 mill/uL (4.2-5.4); RED CELL DISTRIBUTION WIDTH 19.2 % (11.6-14.6)
[2019-11-03] MEDS: METHYLPREDNISOLONE SOD SUCC 40 MG/ML VIAL IV SCH ×3 (06:21→21:20)
[2019-11-03 06:32] LABS: CHLORIDE 108 mEq/L (98-107)
[2019-11-03 08:00] VITALS: BP 127/67
[2019-11-03] MEDS: DICLOFENAC SODIUM 75MG DR (EC) TABLET PO SCH ×3 (09:00→21:23)
[2019-11-03] MEDS: HYDROXYCHLOROQUINE SULFATE 200MG TABLET PO SCH ×2 (09:16→17:10)
[2019-11-03] MEDS: CLOPIDOGREL 75MG TABLET PO SCH ×2 (09:16→16:48)
[2019-11-03] MEDS: FAMOTIDINE 20MG TABLET PO SCH (09:16)
[2019-11-03] MEDS: AZATHIOPRINE 50MG TABLET PO SCH ×2 (09:16→16:48)
[2019-11-03 12:00] VITALS: BP 127/69
[2019-11-03 16:00] VITALS: BP 132/67
[2019-11-03] MEDS: HYDROMORPHONE HCL/PF 2MG/ML CPJ IV PRN ×2 (17:04→21:23)
[2019-11-03 20:00] VITALS: BP 121/71
[2019-11-04] VITALS: BP 132/83
[2019-11-04 04:00] VITALS: BP 140/83
[2019-11-04] MEDS: HYDROMORPHONE HCL/PF 2MG/ML CPJ IV PRN ×4 (05:00→19:50)
[2019-11-04] MEDS: METHYLPREDNISOLONE SOD SUCC 40 MG/ML VIAL IV SCH ×3 (05:06→20:05)
[2019-11-04 08:32] LABS: CHLORIDE 108 mEq/L (98-107)
[2019-11-04] MEDS: SERTRALINE HCL 50MG TABLET PO SCH (09:00)
[2019-11-04] MEDS: DICLOFENAC SODIUM 75MG DR (EC) TABLET PO SCH ×2 (09:37→19:59)
[2019-11-04] MEDS: FAMOTIDINE 20MG TABLET PO SCH (09:37)
[2019-11-04] MEDS: CLOPIDOGREL 75MG TABLET PO SCH (09:37)
[2019-11-04] MEDS: HYDROXYCHLOROQUINE SULFATE 200MG TABLET PO SCH ×2 (09:38→17:37)
[2019-11-04] MEDS: AZATHIOPRINE 50MG TABLET PO SCH ×2 (10:21→17:38)
[2019-11-04 12:50] LABS: BASOPHILS % 0.5 % (0.0-2.0); EOSINOPHILS % 0.1 % (0.0-5.0); HEMATOCRIT. 41.3 % (36.0-48.0); HEMOGLOBIN. 13.1 g/dL (12.0-16.0); LYMPHOCYTES % 12.5 % (20.0-50.0); MEAN CORPUSCULAR HEMOGLOBIN 26.8 pg (28.0-32.0); MEAN CORPUSCULAR VOLUME 84.7 fL (81.0-99.0); MEAN PLATELET VOLUME 7.8 fl (7.4-10.4); MONOCYTES % 9.8 % (2.0-8.0); NEUTROPHILS % 77.1 % (40.0-76.0); PLATELET 349 x1000/uL (130-400); RED BLOOD CELL COUNT 4.88 mill/uL (4.2-5.4); RED CELL DISTRIBUTION WIDTH 19.6 % (11.6-14.6)
[2019-11-04] MEDS: HYDROCODONE/ACETAMINOPHEN 10/325MG TABLET PO PRN ×2 (15:00→22:40)
[2019-11-04 16:00] VITALS: BP 142/85
[2019-11-04] MEDS ORDERED: SODIUM POLYSTYRENE SULFONATE 15 G/60 ML BOT PO NR ×2 (16:00→18:00)
[2019-11-04 17:33] LABS: BG CARBOXYHEMOGLOBIN 0.5 % (0.5-1.5); BG DEOXYHEMOGLOBIN 5.1 % (0.0-5.0); BG FRACTION INSPIRED OXYGEN 21; BG HCO3 ACT 21.5 mmol/L (22.0-26.0); BG METHEMOGLOBIN 0.2 % (0.0-1.5); BG OXYGEN SATURATION 94.9 % (92.0-98.5); BG OXYHEMOGLOBIN 94.2 % (94.0-97.0); BG PCO2 32.7 mmHg (35.0-45.0); BG PH 7.435 (7.350-7.450); BG SAMPLE SITE RIGHT RADIAL; BG TOTAL HEMOGLOBIN 13.3 g/dL (12.0-18.0); BG VENT MODE ROOM AIR
[2019-11-04] MEDS: CARISOPRODOL 350 MG TABLET PO PRN (17:46)
[2019-11-04 20:00] VITALS: BP 119/80
[2019-11-05] VITALS: BP 132/74
[2019-11-05] MEDS: HYDROMORPHONE HCL/PF 2MG/ML CPJ IV PRN ×3 (01:55→14:19)
[2019-11-05 04:00] VITALS: BP 138/80
[2019-11-05] MEDS: HYDROCODONE/ACETAMINOPHEN 10/325MG TABLET PO PRN ×2 (04:44→10:57)
[2019-11-05] MEDS: CARISOPRODOL 350 MG TABLET PO PRN (05:45)
[2019-11-05 07:44] LABS: BASOPHILS % 0.4 % (0.0-2.0); EOSINOPHILS % 0.1 % (0.0-5.0); HEMATOCRIT. 39.9 % (36.0-48.0); HEMOGLOBIN. 12.5 g/dL (12.0-16.0); LYMPHOCYTES % 13.7 % (20.0-50.0); MEAN CORPUSCULAR HEMOGLOBIN 26.1 pg (28.0-32.0); MEAN CORPUSCULAR VOLUME 83.4 fL (81.0-99.0); MEAN PLATELET VOLUME 7.9 fl (7.4-10.4); MONOCYTES % 10.9 % (2.0-8.0); NEUTROPHILS % 74.9 % (40.0-76.0); PLATELET 344 x1000/uL (130-400); RED BLOOD CELL COUNT 4.79 mill/uL (4.2-5.4); RED CELL DISTRIBUTION WIDTH 19.4 % (11.6-14.6)
[2019-11-05 08:00] VITALS: BP 153/85
[2019-11-05 08:10] LABS: CHLORIDE 107 mEq/L (98-107)
[2019-11-05] MEDS: FAMOTIDINE 20MG TABLET PO SCH (08:41)
[2019-11-05] MEDS: HYDROXYCHLOROQUINE SULFATE 200MG TABLET PO SCH (08:41)
[2019-11-05] MEDS: CLOPIDOGREL 75MG TABLET PO SCH (08:41)
[2019-11-05] MEDS: AZATHIOPRINE 50MG TABLET PO SCH (08:41)
[2019-11-05] MEDS: DICLOFENAC SODIUM 75MG DR (EC) TABLET PO SCH (08:42)
[2019-11-05] MEDS: SERTRALINE HCL 50MG TABLET PO SCH (08:45)
[2019-11-05] MEDS ORDERED: PREDNISONE 20MG TABLET PO SCH (09:00)
[2019-11-05] MEDS ORDERED: OXYC30TA89 MT (11:46)
[2019-11-05] MEDS ORDERED: P20 PO (11:46)
[2019-11-05] MEDS ORDERED: OXYC-515 MT (13:00)
[2019-11-05 14:27] VITALS: BP 175/66
[2019-11-05 14:32] VITALS: BP 175/86
[2019-11-05 19:06] LABS: ANTI-DNA DOUBLE STRANDED QUANT < 1 IU/mL (0-9); RNP ANTIBODY 0.2 AI (0.0-0.9); SMITH ANTIBODY < 0.2 AI (0.0-0.9)
[2019-11-06 15:06] LABS: ANA IFA Negative (.); ATYPICAL P-ANCA <1:20 titer (Neg:<1:20); CYTOPLASMIC C-ANCA <1:20 titer (Neg:<1:20); PERINUCLEAR P-ANCA <1:20 titer (Neg:<1:20)
[2019-11-07 13:07] LABS: ANTI-MYELOPEROXIDASE AB < 9.0 U/mL (0.0-9.0); ANTI-PROTEINASE 3 ABS < 3.5 U/mL (0.0-3.5)
== END 2019-11-05 15:35 | disposition home or self-care (01) | DRG 346 ==
LOC: ER 07:45 → 7WST 10:42 → EDBEDREQTM 10:51 → ENRESERV 19:05
PROVIDERS: ADMIT Internal Medicine; ATTEND Internal Medicine
DX: M32.9 Systemic lupus erythematosus, unspecified (principal); E87.8 Other disorders of electrolyte and fluid balance, not elsewhere classified; E44.1 Mild protein-calorie malnutrition; K86.1 Other chronic pancreatitis; J44.9 Chronic obstructive pulmonary disease, unspecified; E87.1 Hypo-osmolality and hyponatremia; E87.5 Hyperkalemia; M35.00 Sjogren syndrome, unspecified; I10 Essential (primary) hypertension; K57.30 Diverticulosis of large intestine without perforation or abscess without bleeding; M13.819 Other specified arthritis, unspecified shoulder; F32.9 Major depressive disorder, single episode, unspecified; B19.20 Unspecified viral hepatitis C without hepatic coma; N28.1 Cyst of kidney, acquired; Z82.49 Family history of ischemic heart disease and other diseases of the circulatory system; Z88.6 Allergy status to analgesic agent; Z90.49 Acquired absence of other specified parts of digestive tract; Z86.73 Personal history of transient ischemic attack (TIA), and cerebral infarction without residual deficits; Z88.1 Allergy status to other antibiotic agents; Z88.0 Allergy status to penicillin; Z88.8 Allergy status to other drugs, medicaments and biological substances; Z79.899 Other long term (current) drug therapy; Z68.1 Body mass index [BMI] 19.9 or less, adult
CPT/HCPCS: 36415; 36600; 74176; 80048; 80053; 81003; 82247; 82248; 82375; 82805; 83010; 83520; 83615; 83735; 84100; 84132; 85025; 86160; 86225; 86235; 86256; 97162; 99285; J1170; J1200; J2270; J2405; J2920; J7500; J7512

== ENCOUNTER 2019-11-17 21:52 | Inpatient (IN) | payer MEDICARE, MEDICAID ==
[~2019-11-17] VITALS: Ht 165.1 cm; Wt 56.7 kg
[~2019-11-17 21:52] MED LIST changes: +OXYC-515 MT; -OXYC30TA89 MT; +P20 PO
[2019-11-17] MEDS ORDERED: ACETAMINOPHEN 325MG TABLET PO STA (22:35)
[2019-11-17] MEDS ORDERED: ALBUTEROL (0.083%) 2.5MG/3ML NEB HHN STA (22:39)
[2019-11-17] MEDS ORDERED: MAGNESIUM 2 G PREMIX 50 ML IV STA (22:39)
[2019-11-17] MEDS ORDERED: IPRATROPIUM BROMIDE (0.02%) 0.5MG/2.5ML NEB HHN STA (22:39)
[2019-11-18] MEDS ORDERED: AZITHROMYCIN 500 MG in DEXT 5% WATER 250 ML IV SCH ×2
[2019-11-18] MEDS ORDERED: PIPERACILLIN/TAZOBACTAM 3.375GM/50ML PREMIX IV ONE
[2019-11-18] MEDS ORDERED: VANCOMYCIN 1 G PREMIX 200 ML IV SCH
[2019-11-18 00:03] LABS: BASOPHILS % 1.4 % (0.0-2.0); EOSINOPHILS % 0.9 % (0.0-5.0); HEMATOCRIT. 35.8 % (36.0-48.0); HEMOGLOBIN. 11.5 g/dL (12.0-16.0); LYMPHOCYTES % 13.8 % (20.0-50.0); MEAN CORPUSCULAR HEMOGLOBIN 26.5 pg (28.0-32.0); MEAN CORPUSCULAR VOLUME 82.6 fL (81.0-99.0); MEAN PLATELET VOLUME 7.7 fl (7.4-10.4); NEUTROPHILS % 72.9 % (40.0-76.0); PLATELET 210 x1000/uL (130-400); RED BLOOD CELL COUNT 4.34 mill/uL (4.2-5.4); RED CELL DISTRIBUTION WIDTH 20.9 % (11.6-14.6)
[2019-11-18 00:09] LABS: CHLORIDE 110 mEq/L (98-107)
[2019-11-18 00:18] LABS: INR 1.1; PROTHROMBIN TIME 11.5 sec (9.6-11.0)
[2019-11-18] MEDS ORDERED: PIPERACILLIN/TAZ 3.375G PREMIX 50 ML IV NR (00:30)
[2019-11-18 01:25] LABS: CLARITY URINE CLOUDY (CLEAR); COLOR URINE DARK YELLOW (YELLOW); KETONES URINE TRACE (NEGATIVE); LEUKOCYTE ESTERASE URINE TRACE (NEGATIVE); NITRITE URINE NEGATIVE (NEGATIVE); OCCULT BLOOD URINE NEGATIVE (NEGATIVE); PROTEIN URINE NEGATIVE (NEGATIVE); SPECIFIC GRAVITY URINE 1.019 (1.005-1.030)
[2019-11-18] MEDS ORDERED: KETOROLAC 30MG/ML VIAL IV ONE (01:45)
[2019-11-18] MEDS ORDERED: MORPHINE SULFATE 4 MG/ML CPJ (NOT FOR IM USE) IV ONE (04:15)
[2019-11-18] MEDS ORDERED: IOHEXOL-300 100 ML BOTTLE ONE (07:22)
[2019-11-18] MEDS ORDERED: ACETAMINOPHEN 325MG TABLET PO ONE (08:45)
[2019-11-18] MEDS ORDERED: DOCUSATE SODIUM 100MG CAPSULE PO PRN (10:30)
[2019-11-18] MEDS ORDERED: IPRATROPIUM/ALBUTEROL 0.5-3(2.5)MG/3ML NEB HHN PRN (10:30)
[2019-11-18] MEDS ORDERED: DIPHENHYDRAMINE 50MG/ML VIAL IV PRN (10:30)
[2019-11-18] MEDS ORDERED: GUAIFENESIN 200MG/10ML SUGAR FREE UDC PO PRN (10:30)
[2019-11-18] MEDS ORDERED: HYDRALAZINE 20MG/ML VIAL IV PRN (10:30)
[2019-11-18] MEDS ORDERED: MAGNESIUM/ALUMINUM HYDROXIDE/SIMETHICONE 30ML UDC PO PRN (10:30)
[2019-11-18] MEDS ORDERED: ACETAMINOPHEN 325MG TABLET PO PRN (10:30)
[2019-11-18] MEDS ORDERED: CLONIDINE 0.1MG TABLET PO PRN (10:30)
[2019-11-18] MEDS ORDERED: ENOXAPARIN 40MG/0.4ML SYR SUBCUT NR (11:00)
[2019-11-18] MEDS: ONDANSETRON HCL 4MG/2ML INJ IV PRN ×3 (11:11→19:47)
[2019-11-18] MEDS: MORPHINE SULFATE 2 MG/ML CPJ (NOT FOR IM USE) IV PRN ×3 (11:11→19:47)
[2019-11-18] MEDS: HYDROCODONE/ACETAMINOPHEN 10/325MG TABLET PO PRN ×3 (11:57→21:05)
[2019-11-18 14:34] LABS: CREATINE KINASE 134 IU/L (26-192)
[2019-11-18 14:35] LABS: CREATINE KINASE MB FRACTION 2.8 ng/mL (0.5-3.6)
[2019-11-18 21:40] VITALS: BP 93/49
[2019-11-18 22:30] VITALS: BP 93/49
[2019-11-19] VITALS: BP 110/55
[2019-11-19 00:16] LABS: CREATINE KINASE 122 IU/L (26-192)
[2019-11-19 00:17] LABS: CREATINE KINASE MB FRACTION 2.2 ng/mL (0.5-3.6)
[2019-11-19] MEDS: MORPHINE SULFATE 2 MG/ML CPJ (NOT FOR IM USE) IV PRN ×3 (00:27→08:59)
[2019-11-19 04:00] VITALS: BP 108/58
[2019-11-19] MEDS: SODIUM CHLORIDE 0.9% INJ 3ML FLUSH IVF SCH ×3 (06:26→22:25)
[2019-11-19] MEDS: HYDROCODONE/ACETAMINOPHEN 10/325MG TABLET PO PRN ×4 (06:27→20:20)
[2019-11-19] MEDS: ENOXAPARIN 40MG/0.4ML SYR SUBCUT SCH (08:58)
[2019-11-19 10:59] LABS: HEMATOCRIT 33.2 % (36.0-48.0); HEMOGLOBIN 10.7 g/dL (12.0-16.0); MEAN CORPUSCULAR HEMOGLOBIN 26.6 pg (28.0-32.0); MEAN CORPUSCULAR VOLUME 82.3 fL (81.0-99.0); PLATELET 225 x1000/uL (130-400); RED BLOOD CELL COUNT 4.03 mill/uL (4.2-5.4); RED CELL DISTRIBUTION WIDTH 20.1 % (11.6-14.6)
[2019-11-19 11:03] LABS: CHLORIDE 109 mEq/L (98-107)
[2019-11-19 12:00] VITALS: BP 122/72
[2019-11-19] MEDS: HYDROMORPHONE HCL/PF 2MG/ML CPJ IV PRN ×2 (13:05→19:06)
[2019-11-19 16:00] VITALS: BP 113/71
[2019-11-19] MEDS: IPRATROPIUM/ALBUTEROL 0.5-3(2.5)MG/3ML NEB HHN SCH ×3 (16:21→23:56)
[2019-11-19] MEDS: METHYLPREDNISOLONE SOD SUCC 40 MG/ML VIAL IV SCH (17:03)
[2019-11-19 20:00] VITALS: BP 120/70
[2019-11-20] VITALS: BP 114/61
[2019-11-20] MEDS: METHYLPREDNISOLONE SOD SUCC 40 MG/ML VIAL IV SCH ×4 (01:13→22:04)
[2019-11-20] MEDS: HYDROMORPHONE HCL/PF 2MG/ML CPJ IV PRN ×5 (01:22→20:38)
[2019-11-20] MEDS: HYDROCODONE/ACETAMINOPHEN 10/325MG TABLET PO PRN ×4 (03:37→17:59)
[2019-11-20 04:00] VITALS: BP 121/54
[2019-11-20] MEDS: IPRATROPIUM/ALBUTEROL 0.5-3(2.5)MG/3ML NEB HHN SCH ×5 (04:27→20:32)
[2019-11-20] MEDS: SODIUM CHLORIDE 0.9% INJ 3ML FLUSH IVF SCH ×3 (06:00→21:55)
[2019-11-20 06:23] LABS: HEMATOCRIT. 32.8 % (36.0-48.0); HEMOGLOBIN. 10.8 g/dL (12.0-16.0); MEAN CORPUSCULAR HEMOGLOBIN 26.7 pg (28.0-32.0); MEAN CORPUSCULAR VOLUME 81.2 fL (81.0-99.0); MEAN PLATELET VOLUME 7.7 fl (7.4-10.4); PLATELET 231 x1000/uL (130-400); RED BLOOD CELL COUNT 4.04 mill/uL (4.2-5.4); RED CELL DISTRIBUTION WIDTH 20.4 % (11.6-14.6)
[2019-11-20 06:35] LABS: CHLORIDE 109 mEq/L (98-107)
[2019-11-20 08:00] VITALS: BP 132/64
[2019-11-20] MEDS: ENOXAPARIN 40MG/0.4ML SYR SUBCUT SCH (08:28)
[2019-11-20 12:00] VITALS: BP 133/81
[2019-11-20 16:00] VITALS: BP 136/62
[2019-11-20 20:00] VITALS: BP 131/71
[2019-11-20] MEDS: GUAIFENESIN 600MG ER TABLET PO SCH (20:37)
[2019-11-20] MEDS: LATANOPROST 0.005% OPHTH DROPS 2.5ML BOTHEYE SCH (21:54)
[2019-11-20] MEDS: TIMOLOL MALEATE 0.5% OPHTH DROPS 5ML EACHEYE SCH (21:54)
[2019-11-20] MEDS: METHAZOLAMIDE 50MG TABLET PO SCH (21:55)
[2019-11-21] VITALS: BP 134/69
[2019-11-21] MEDS: HYDROCODONE/ACETAMINOPHEN 10/325MG TABLET PO PRN ×3 (00:23→17:03)
[2019-11-21] MEDS: IPRATROPIUM/ALBUTEROL 0.5-3(2.5)MG/3ML NEB HHN SCH ×5 (00:39→20:47)
[2019-11-21] MEDS: HYDROMORPHONE HCL/PF 2MG/ML CPJ IV PRN ×6 (01:27→23:33)
[2019-11-21 04:00] VITALS: BP 144/80
[2019-11-21 04:47] LABS: PLATELET ESTIMATE NORMAL
[2019-11-21] MEDS: SODIUM CHLORIDE 0.9% INJ 3ML FLUSH IVF SCH ×3 (05:38→23:34)
[2019-11-21] MEDS: METHYLPREDNISOLONE SOD SUCC 40 MG/ML VIAL IV SCH ×3 (06:44→23:30)
[2019-11-21 07:11] LABS: CHLORIDE 111 mEq/L (98-107)
[2019-11-21 07:16] LABS: BASOPHILS % 1.1 % (0.0-2.0); HEMATOCRIT. 33.9 % (36.0-48.0); HEMOGLOBIN. 11.1 g/dL (12.0-16.0); LYMPHOCYTES % 8.6 % (20.0-50.0); MEAN CORPUSCULAR HEMOGLOBIN 26.6 pg (28.0-32.0); MEAN CORPUSCULAR VOLUME 81.4 fL (81.0-99.0); MEAN PLATELET VOLUME 7.9 fl (7.4-10.4); NEUTROPHILS % 86.3 % (40.0-76.0); PLATELET 236 x1000/uL (130-400); RED BLOOD CELL COUNT 4.16 mill/uL (4.2-5.4); RED CELL DISTRIBUTION WIDTH 20.4 % (11.6-14.6)
[2019-11-21 08:00] VITALS: BP 155/71
[2019-11-21] MEDS: GUAIFENESIN 600MG ER TABLET PO SCH ×2 (09:21→23:33)
[2019-11-21] MEDS: ENOXAPARIN 40MG/0.4ML SYR SUBCUT SCH (09:22)
[2019-11-21] MEDS: TIMOLOL MALEATE 0.5% OPHTH DROPS 5ML EACHEYE SCH ×2 (09:22→23:34)
[2019-11-21] MEDS: METHAZOLAMIDE 50MG TABLET PO SCH ×2 (09:24→23:33)
[2019-11-21] MEDS ORDERED: TERBUTALINE SULFATE 1MG/ML VIAL SUBCUT NR (11:00)
[2019-11-21 16:00] VITALS: BP 130/67
[2019-11-21 20:00] VITALS: BP 151/73
[2019-11-21] MEDS: LATANOPROST 0.005% OPHTH DROPS 2.5ML BOTHEYE SCH (23:34)
[2019-11-22] VITALS: BP 117/64
[2019-11-22] MEDS: IPRATROPIUM/ALBUTEROL 0.5-3(2.5)MG/3ML NEB HHN SCH ×6 (00:25→21:30)
[2019-11-22] MEDS: HYDROMORPHONE HCL/PF 2MG/ML CPJ IV PRN ×4 (03:56→16:41)
[2019-11-22 04:00] VITALS: BP 135/77
[2019-11-22] MEDS: SODIUM CHLORIDE 0.9% INJ 3ML FLUSH IVF SCH ×3 (06:18→21:03)
[2019-11-22] MEDS: METHYLPREDNISOLONE SOD SUCC 40 MG/ML VIAL IV SCH ×2 (06:19→16:40)
[2019-11-22 06:39] LABS: CHLORIDE 111 mEq/L (98-107)
[2019-11-22 07:03] LABS: HEMATOCRIT. 38.5 % (36.0-48.0); HEMOGLOBIN. 12.4 g/dL (12.0-16.0); MEAN CORPUSCULAR HEMOGLOBIN 26.5 pg (28.0-32.0); MEAN CORPUSCULAR VOLUME 81.9 fL (81.0-99.0); MEAN PLATELET VOLUME 7.9 fl (7.4-10.4); PLATELET 271 x1000/uL (130-400); RED CELL DISTRIBUTION WIDTH 20.3 % (11.6-14.6)
[2019-11-22 07:57] LABS: PLATELET ESTIMATE NORMAL
[2019-11-22 08:00] VITALS: BP 129/78
[2019-11-22] MEDS: METHAZOLAMIDE 50MG TABLET PO SCH ×2 (08:21→21:00)
[2019-11-22] MEDS: ENOXAPARIN 40MG/0.4ML SYR SUBCUT SCH (08:21)
[2019-11-22] MEDS: GUAIFENESIN 600MG ER TABLET PO SCH ×2 (08:21→21:00)
[2019-11-22] MEDS: TIMOLOL MALEATE 0.5% OPHTH DROPS 5ML EACHEYE SCH ×2 (08:35→21:03)
[2019-11-22 12:00] VITALS: BP 156/88
[2019-11-22] MEDS: HYDROCODONE/ACETAMINOPHEN 10/325MG TABLET PO PRN (13:40)
[2019-11-22 16:00] VITALS: BP 138/84
[2019-11-22 20:00] VITALS: BP 138/81
[2019-11-22] MEDS: LORAZEPAM 2MG/ML CPJ IV PRN (21:01)
[2019-11-22] MEDS: LATANOPROST 0.005% OPHTH DROPS 2.5ML BOTHEYE SCH (21:02)
[2019-11-23] VITALS (7 sets, daily range): BP systolic 125–148; BP diastolic 62–93
[2019-11-23] MEDS: IPRATROPIUM/ALBUTEROL 0.5-3(2.5)MG/3ML NEB HHN SCH ×4 (01:24→20:05)
[2019-11-23] MEDS: HYDROMORPHONE HCL/PF 2MG/ML CPJ IV PRN ×4 (02:06→22:01)
[2019-11-23] MEDS: HYDROCODONE/ACETAMINOPHEN 10/325MG TABLET PO PRN (04:53)
[2019-11-23] MEDS: SODIUM CHLORIDE 0.9% INJ 3ML FLUSH IVF SCH ×3 (05:01→21:34)
[2019-11-23] MEDS: LORAZEPAM 2MG/ML CPJ IV PRN (06:27)
[2019-11-23 09:26] LABS: CHLORIDE 114 mEq/L (98-107)
[2019-11-23] MEDS: TIMOLOL MALEATE 0.5% OPHTH DROPS 5ML EACHEYE SCH ×2 (09:28→21:34)
[2019-11-23] MEDS: GUAIFENESIN 600MG ER TABLET PO SCH ×2 (09:29→21:34)
[2019-11-23] MEDS: PREDNISONE 20MG TABLET PO SCH (09:30)
[2019-11-23] MEDS: METHAZOLAMIDE 50MG TABLET PO SCH ×2 (09:30→21:34)
[2019-11-23 09:31] LABS: BASOPHILS % 0.4 % (0.0-2.0); EOSINOPHILS % 0.1 % (0.0-5.0); MEAN CORPUSCULAR HEMOGLOBIN 26.1 pg (28.0-32.0); MEAN CORPUSCULAR VOLUME 82.3 fL (81.0-99.0); MEAN PLATELET VOLUME 7.6 fl (7.4-10.4); MONOCYTES % 10.3 % (2.0-8.0); NEUTROPHILS % 75.2 % (40.0-76.0); PLATELET 303 x1000/uL (130-400); RED BLOOD CELL COUNT 4.98 mill/uL (4.2-5.4); RED CELL DISTRIBUTION WIDTH 20.1 % (11.6-14.6)
[2019-11-23] MEDS: ENOXAPARIN 40MG/0.4ML SYR SUBCUT SCH (09:31)
[2019-11-23] MEDS: LATANOPROST 0.005% OPHTH DROPS 2.5ML BOTHEYE SCH (21:34)
[2019-11-23] MEDS ORDERED: SODIUM POLYSTYRENE SULFONATE 15 G/60 ML BOT PO NR (22:00)
[2019-11-24] VITALS: BP 130/60
[2019-11-24] MEDS: IPRATROPIUM/ALBUTEROL 0.5-3(2.5)MG/3ML NEB HHN SCH ×4 (01:13→21:50)
[2019-11-24 04:00] VITALS: BP 140/70
[2019-11-24] MEDS: HYDROMORPHONE HCL/PF 2MG/ML CPJ IV PRN ×4 (04:06→22:37)
[2019-11-24] MEDS: SODIUM CHLORIDE 0.9% INJ 3ML FLUSH IVF SCH ×3 (05:00→20:55)
[2019-11-24 08:00] VITALS: BP 123/78
[2019-11-24] MEDS: GUAIFENESIN 600MG ER TABLET PO SCH ×2 (09:23→20:55)
[2019-11-24] MEDS: PREDNISONE 20MG TABLET PO SCH (09:23)
[2019-11-24] MEDS: TIMOLOL MALEATE 0.5% OPHTH DROPS 5ML EACHEYE SCH ×2 (09:23→20:55)
[2019-11-24] MEDS: ENOXAPARIN 40MG/0.4ML SYR SUBCUT SCH (09:24)
[2019-11-24] MEDS: METHAZOLAMIDE 50MG TABLET PO SCH ×2 (09:24→20:55)
[2019-11-24] MEDS: LEVOFLOXACIN 500MG PREMIX 100 ML IV SCH (11:14)
[2019-11-24 12:00] VITALS: BP 146/78
[2019-11-24 16:00] VITALS: BP 149/79
[2019-11-24 16:06] LABS: CHLORIDE 112 mEq/L (98-107)
[2019-11-24 17:49] LABS: BASOPHILS % 1.3 % (0.0-2.0); EOSINOPHILS % 0.3 % (0.0-5.0); HEMATOCRIT. 43.6 % (36.0-48.0); HEMOGLOBIN. 13.5 g/dL (12.0-16.0); MEAN CORPUSCULAR VOLUME 84.2 fL (81.0-99.0); MONOCYTES % 9.7 % (2.0-8.0); NEUTROPHILS % 77.7 % (40.0-76.0); RED BLOOD CELL COUNT 5.19 mill/uL (4.2-5.4); RED CELL DISTRIBUTION WIDTH 20.7 % (11.6-14.6)
[2019-11-24 20:00] VITALS: BP 105/65
[2019-11-24] MEDS: LATANOPROST 0.005% OPHTH DROPS 2.5ML BOTHEYE SCH (20:55)
[2019-11-24] MEDS: ONDANSETRON HCL 4MG/2ML INJ IV PRN (22:03)
[2019-11-24 23:00] LABS: CLARITY URINE CLEAR (CLEAR); COLOR URINE YELLOW (YELLOW); KETONES URINE NEGATIVE (NEGATIVE); LEUKOCYTE ESTERASE URINE TRACE (NEGATIVE); NITRITE URINE NEGATIVE (NEGATIVE); OCCULT BLOOD URINE NEGATIVE (NEGATIVE); PROTEIN URINE NEGATIVE (NEGATIVE); SPECIFIC GRAVITY URINE 1.016 (1.005-1.030); UROBILINOGEN URINE 0.2 E.U./dL (0.2-1.0)
[2019-11-25] VITALS: BP 122/71
[2019-11-25] MEDS: IPRATROPIUM/ALBUTEROL 0.5-3(2.5)MG/3ML NEB HHN SCH ×2 (01:20→09:15)
[2019-11-25 04:00] VITALS: BP 105/63
[2019-11-25] MEDS: HYDROMORPHONE HCL/PF 2MG/ML CPJ IV PRN ×2 (04:38→10:46)
[2019-11-25] MEDS: SODIUM CHLORIDE 0.9% INJ 3ML FLUSH IVF SCH (04:41)
[2019-11-25 06:17] LABS: BASOPHILS % 0.3 % (0.0-2.0); EOSINOPHILS % 0.7 % (0.0-5.0); HEMATOCRIT. 42.7 % (36.0-48.0); HEMOGLOBIN. 13.5 g/dL (12.0-16.0); LYMPHOCYTES % 29.5 % (20.0-50.0); MEAN CORPUSCULAR HEMOGLOBIN 25.9 pg (28.0-32.0); MEAN CORPUSCULAR VOLUME 81.9 fL (81.0-99.0); MEAN PLATELET VOLUME 8.1 fl (7.4-10.4); MONOCYTES % 12.6 % (2.0-8.0); NEUTROPHILS % 56.9 % (40.0-76.0); PLATELET 312 x1000/uL (130-400); RED BLOOD CELL COUNT 5.21 mill/uL (4.2-5.4)
[2019-11-25 06:39] LABS: CHLORIDE 113 mEq/L (98-107)
[2019-11-25 08:00] VITALS: BP 106/72
[2019-11-25] MEDS: GUAIFENESIN 600MG ER TABLET PO SCH (08:27)
[2019-11-25] MEDS: METHAZOLAMIDE 50MG TABLET PO SCH (08:27)
[2019-11-25] MEDS: TIMOLOL MALEATE 0.5% OPHTH DROPS 5ML EACHEYE SCH (08:27)
[2019-11-25] MEDS: PREDNISONE 20MG TABLET PO SCH (08:27)
[2019-11-25] MEDS: ENOXAPARIN 40MG/0.4ML SYR SUBCUT SCH (08:28)
[2019-11-25] MEDS: LEVOFLOXACIN 500MG PREMIX 100 ML IV SCH (10:45)
[2019-11-25 12:23] VITALS: BP 106/72
[2019-11-25] MEDS ORDERED: IPRATROPIUM/ALBUTEROL 0.5-3(2.5)MG/3ML NEB HHN SCH (14:00)
[2019-11-26] MEDS ORDERED: PREDNISONE 20MG TABLET PO SCH (09:00)
== END 2019-11-25 15:00 | disposition home or self-care (01) | DRG 241 ==
LOC: ER 21:52 → 5WST 11-18 04:41 → ENRESERV 11-18 20:26
PROVIDERS: ADMIT Internal Medicine; ATTEND Internal Medicine
DX: K29.70 Gastritis, unspecified, without bleeding (principal); J96.00 Acute respiratory failure, unspecified whether with hypoxia or hypercapnia; E87.5 Hyperkalemia; J44.1 Chronic obstructive pulmonary disease with (acute) exacerbation; K86.1 Other chronic pancreatitis; K86.89 Other specified diseases of pancreas; M32.9 Systemic lupus erythematosus, unspecified; N28.1 Cyst of kidney, acquired; B19.20 Unspecified viral hepatitis C without hepatic coma; F17.210 Nicotine dependence, cigarettes, uncomplicated; H54.61 Unqualified visual loss, right eye, normal vision left eye; I10 Essential (primary) hypertension; K59.00 Constipation, unspecified; M47.816 Spondylosis without myelopathy or radiculopathy, lumbar region; D64.9 Anemia, unspecified; K57.30 Diverticulosis of large intestine without perforation or abscess without bleeding; J98.11 Atelectasis; Z90.49 Acquired absence of other specified parts of digestive tract; Z90.710 Acquired absence of both cervix and uterus; Z80.0 Family history of malignant neoplasm of digestive organs
CPT/HCPCS: 36415; 71045; 74177; 80048; 80053; 81003; 82550; 82553; 82962; 83605; 84145; 84484; 85025; 85027; 93970; 94618; 94640; 94644; 96365; 97116; 97162; 99291; J0456; J1170; J1650; J1885; J1956; J2060; J2270; J2405; J2543; J2920; J3105; J3370; J3475; J7060; J7512; Q9967

== ENCOUNTER 2019-12-04 09:13 | Emergency (ER) | payer MEDICARE, OTHER ==
[~2019-12-04] VITALS: Ht 172.7 cm; Wt 60.0 kg
[2019-12-04] MEDS ORDERED: MORPHINE SULFATE 4 MG/ML CPJ (NOT FOR IM USE) IV STA (10:21)
[2019-12-04] MEDS ORDERED: ONDANSETRON HCL 4MG/2ML INJ IV STA (10:21)
[2019-12-04] MEDS ORDERED: DIPHENHYDRAMINE 50MG/ML VIAL IV ONE (10:30)
[2019-12-04 11:11] LABS: BASOPHILS % 0.1 % (0.0-2.0); EOSINOPHILS % 0.2 % (0.0-5.0); HEMATOCRIT. 37.6 % (36.0-48.0); HEMOGLOBIN. 12.1 g/dL (12.0-16.0); MEAN CORPUSCULAR HEMOGLOBIN 26.1 pg (28.0-32.0); MEAN CORPUSCULAR VOLUME 81.5 fL (81.0-99.0); MEAN PLATELET VOLUME 7.6 fl (7.4-10.4); MONOCYTES % 7.4 % (2.0-8.0); NEUTROPHILS % 73.3 % (40.0-76.0); PLATELET 232 x1000/uL (130-400); RED BLOOD CELL COUNT 4.62 mill/uL (4.2-5.4); RED CELL DISTRIBUTION WIDTH 20.4 % (11.6-14.6)
[2019-12-04 11:14] LABS: CHLORIDE 111 mEq/L (98-107)
[2019-12-04 11:15] LABS: INR 1.1; PROTHROMBIN TIME 11.4 sec (9.6-11.0)
[2019-12-04 11:30] LABS: CLARITY URINE CLEAR (CLEAR); COLOR URINE YELLOW (YELLOW); KETONES URINE NEGATIVE (NEGATIVE); LEUKOCYTE ESTERASE URINE TRACE (NEGATIVE); NITRITE URINE NEGATIVE (NEGATIVE); OCCULT BLOOD URINE NEGATIVE (NEGATIVE); PH URINE 6.5 (4.5-8.0); PROTEIN URINE NEGATIVE (NEGATIVE); SPECIFIC GRAVITY URINE 1.019 (1.005-1.030); UROBILINOGEN URINE 0.2 E.U./dL (0.2-1.0)
[2019-12-04 12:02] VITALS: BP 156/89
== END 2019-12-04 12:03 | disposition home or self-care (01) ==
LOC: ER 09:13
DX: R10.13 Epigastric pain (principal); J44.9 Chronic obstructive pulmonary disease, unspecified; M32.9 Systemic lupus erythematosus, unspecified; Z88.0 Allergy status to penicillin; Z88.1 Allergy status to other antibiotic agents; Z79.899 Other long term (current) drug therapy
CPT/HCPCS: 36415; 80053; 81003; 83690; 85025; 85610; 96374; 96375; 99284; J1200; J2270; J2405

== ENCOUNTER 2019-12-21 07:38 | Emergency (ER) | payer MEDICARE, OTHER ==
[~2019-12-21] VITALS: Ht 170.2 cm; Wt 54.0 kg
[2019-12-21] MEDS ORDERED: ALBUTEROL (0.083%) 2.5MG/3ML NEB HHN STA (08:05)
[2019-12-21] MEDS ORDERED: IPRATROPIUM BROMIDE (0.02%) 0.5MG/2.5ML NEB HHN STA (08:05)
[2019-12-21] MEDS ORDERED: ONDANSETRON 4MG ODT PO ONE (08:15)
[2019-12-21] MEDS ORDERED: MORPHINE SULFATE 10 MG/ML CPJ IM ONE (08:15)
[2019-12-21 08:42] LABS: *AMPHETAMINES SCREEN URINE NEGATIVE (NEGATIVE); *BARBITURATES SCREEN URINE NEGATIVE (NEGATIVE); *BENZODIAZEPINES SCREEN URINE NEGATIVE (NEGATIVE); *COCAINE SCREEN URINE NEGATIVE (NEGATIVE); METHADONE URINE SCREEN NEGATIVE (NEGATIVE)
[2019-12-21 08:43] LABS: CANNABINOID URINE SCREEN NEGATIVE (NEGATIVE); OPIATES URINE SCREEN PRESUMTIVE POSITIVE (NEGATIVE); PHENCYCLIDINE URINE SCREEN NEGATIVE (NEGATIVE)
[2019-12-21 09:08] LABS: HEMATOCRIT. 39.2 % (36.0-48.0); HEMOGLOBIN. 12.7 g/dL (12.0-16.0); MEAN CORPUSCULAR HEMOGLOBIN 26.2 pg (28.0-32.0); MEAN CORPUSCULAR VOLUME 81.3 fL (81.0-99.0); MEAN PLATELET VOLUME 7.5 fl (7.4-10.4); PLATELET 313 x1000/uL (130-400); RED BLOOD CELL COUNT 4.82 mill/uL (4.2-5.4)
[2019-12-21 09:10] LABS: CHLORIDE 109 mEq/L (98-107)
[2019-12-21 09:39] LABS: PLATELET ESTIMATE NORMAL
[2019-12-21] MEDS ORDERED: FUROSEMIDE 20MG/2ML VIAL IVP ONE (09:45)
[2019-12-21] MEDS ORDERED: PREDNISONE 20MG TABLET PO ONE (10:30)
[2019-12-21] MEDS ORDERED: FUROSEMIDE 20MG TABLET PO ONE (10:45)
[2019-12-21 10:50] VITALS: BP 148/88
== END 2019-12-21 11:02 | disposition home or self-care (01) ==
LOC: ER 07:38
DX: R07.89 Other chest pain (principal); G89.29 Other chronic pain; J44.9 Chronic obstructive pulmonary disease, unspecified; I50.9 Heart failure, unspecified; M32.9 Systemic lupus erythematosus, unspecified; Z87.891 Personal history of nicotine dependence; Z88.1 Allergy status to other antibiotic agents; Z88.3 Allergy status to other anti-infective agents; Z88.0 Allergy status to penicillin
CPT/HCPCS: 36415; 71045; 71046; 80048; 80305; 83880; 84484; 85025; 93005; 94640; 96372; 99285; J2270; J7512; Q0162; Z7610

== ENCOUNTER 2019-12-23 08:01 | Inpatient (IN) | payer MEDICARE, MEDICAID, OTHER ==
[~2019-12-23] VITALS: Ht 170.2 cm; Wt 53.8 kg
[2019-12-23] MEDS ORDERED: MORPHINE SULFATE 4 MG/ML CPJ (NOT FOR IM USE) IV STA (08:41)
[2019-12-23] MEDS ORDERED: IPRATROPIUM BROMIDE (0.02%) 0.5MG/2.5ML NEB HHN STA (08:41)
[2019-12-23] MEDS ORDERED: ONDANSETRON HCL 4MG/2ML INJ IV STA (08:41)
[2019-12-23] MEDS ORDERED: ALBUTEROL (0.083%) 2.5MG/3ML NEB HHN STA (08:41)
[2019-12-23] MEDS ORDERED: MAGNESIUM 2 G PREMIX 50 ML IV ONE (08:45)
[2019-12-23 09:17] LABS: BASOPHILS % 1.4 % (0.0-2.0); EOSINOPHILS % 1.4 % (0.0-5.0); HEMATOCRIT. 37.7 % (36.0-48.0); LYMPHOCYTES % 34.5 % (20.0-50.0); MEAN CORPUSCULAR HEMOGLOBIN 25.8 pg (28.0-32.0); MEAN CORPUSCULAR VOLUME 81.4 fL (81.0-99.0); MEAN PLATELET VOLUME 7.4 fl (7.4-10.4); MONOCYTES % 12.9 % (2.0-8.0); NEUTROPHILS % 49.8 % (40.0-76.0); PLATELET 320 x1000/uL (130-400); RED BLOOD CELL COUNT 4.63 mill/uL (4.2-5.4); RED CELL DISTRIBUTION WIDTH 20.9 % (11.6-14.6)
[2019-12-23 09:24] LABS: CHLORIDE 111 mEq/L (98-107)
[2019-12-23 09:28] LABS: INR 1.1
[2019-12-23] MEDS ORDERED: POTASSIUM CHLORIDE 20MEQ TABLET SR PO ONE (09:45)
[2019-12-23] MEDS ORDERED: CLONIDINE 0.1MG TABLET PO SCH (14:36)
[2019-12-23] MEDS: ACETAMINOPHEN WITH CODEINE 300/30MG TABLET PO PRN ×2 (14:46→20:44)
[2019-12-23 22:53] VITALS: BP 127/70
[2019-12-23] MEDS ORDERED: ONDANSETRON HCL 4MG/2ML INJ IV PRN (23:45)
[2019-12-23] MEDS ORDERED: NON FORMULARY PATIENT HOME MED XX SCH (23:45)
[2019-12-24] MEDS ORDERED: CARISOPRODOL 350 MG TABLET PO PRN
[2019-12-24] MEDS: METHYLPREDNISOLONE SOD SUCC 40 MG/ML VIAL IV SCH ×4 (00:44→22:24)
[2019-12-24] MEDS: MORPHINE SULFATE 2 MG/ML CPJ (NOT FOR IM USE) IV PRN ×7 (00:45→22:23)
[2019-12-24 01:06] VITALS: BP 127/64
[2019-12-24] MEDS: ALBUTEROL (0.083%) 2.5MG/3ML NEB HHN SCH ×6 (02:10→20:28)
[2019-12-24 04:00] VITALS: BP 126/76
[2019-12-24] MEDS ORDERED: NON FORMULARY PATIENT HOME MED XX SCH (06:00)
[2019-12-24 07:22] LABS: BASOPHILS % 0.3 % (0.0-2.0); HEMATOCRIT. 35.7 % (36.0-48.0); HEMOGLOBIN. 11.6 g/dL (12.0-16.0); LYMPHOCYTES % 11.8 % (20.0-50.0); MEAN CORPUSCULAR HEMOGLOBIN 26.2 pg (28.0-32.0); MEAN CORPUSCULAR VOLUME 80.7 fL (81.0-99.0); MEAN PLATELET VOLUME 7.5 fl (7.4-10.4); MONOCYTES % 4.4 % (2.0-8.0); NEUTROPHILS % 83.5 % (40.0-76.0); PLATELET 336 x1000/uL (130-400); RED BLOOD CELL COUNT 4.43 mill/uL (4.2-5.4)
[2019-12-24 07:36] LABS: CHLORIDE 112 mEq/L (98-107)
[2019-12-24 08:00] VITALS: BP 143/73
[2019-12-24] MEDS: ENOXAPARIN 40MG/0.4ML SYR SUBCUT SCH (09:17)
[2019-12-24] MEDS: FAMOTIDINE 20MG TABLET PO SCH ×2 (09:19→17:29)
[2019-12-24] MEDS: AZATHIOPRINE 50MG TABLET PO SCH ×2 (09:19→17:29)
[2019-12-24] MEDS: HYDROXYCHLOROQUINE SULFATE 200MG TABLET PO SCH ×2 (09:19→17:30)
[2019-12-24 12:00] VITALS: BP 134/66
[2019-12-24 16:00] VITALS: BP 135/85
[2019-12-24 20:00] VITALS: BP 125/75
[2019-12-25] VITALS: BP 126/76
[2019-12-25] MEDS: ALBUTEROL (0.083%) 2.5MG/3ML NEB HHN SCH ×6 (00:33→20:06)
[2019-12-25] MEDS: MORPHINE SULFATE 2 MG/ML CPJ (NOT FOR IM USE) IV PRN ×7 (01:25→23:44)
[2019-12-25 04:00] VITALS: BP 129/67
[2019-12-25] MEDS: METHYLPREDNISOLONE SOD SUCC 40 MG/ML VIAL IV SCH ×3 (05:34→21:21)
[2019-12-25 08:00] VITALS: BP 158/80
[2019-12-25] MEDS: FAMOTIDINE 20MG TABLET PO SCH ×2 (08:29→16:33)
[2019-12-25] MEDS: AZATHIOPRINE 50MG TABLET PO SCH ×2 (08:29→16:33)
[2019-12-25] MEDS: HYDROXYCHLOROQUINE SULFATE 200MG TABLET PO SCH ×2 (08:29→16:33)
[2019-12-25] MEDS: ENOXAPARIN 40MG/0.4ML SYR SUBCUT SCH (08:30)
[2019-12-25 12:00] VITALS: BP 132/80
[2019-12-25] MEDS ORDERED: GUAIFENESIN 200MG/10ML SUGAR FREE UDC PO PRN (15:00)
[2019-12-25 16:00] VITALS: BP 135/83
[2019-12-26] VITALS: BP 131/64
[2019-12-26] MEDS: ALBUTEROL (0.083%) 2.5MG/3ML NEB HHN SCH ×3 (00:19→12:47)
[2019-12-26] MEDS: MORPHINE SULFATE 2 MG/ML CPJ (NOT FOR IM USE) IV PRN ×2 (03:50→07:59)
[2019-12-26 03:55] VITALS: BP 124/76
[2019-12-26] MEDS: METHYLPREDNISOLONE SOD SUCC 40 MG/ML VIAL IV SCH (06:48)
[2019-12-26] MEDS: FAMOTIDINE 20MG TABLET PO SCH ×2 (07:55→16:37)
[2019-12-26] MEDS: HYDROXYCHLOROQUINE SULFATE 200MG TABLET PO SCH ×2 (07:55→16:37)
[2019-12-26] MEDS: ENOXAPARIN 40MG/0.4ML SYR SUBCUT SCH (07:56)
[2019-12-26 08:00] VITALS: BP 144/76
[2019-12-26] MEDS ORDERED: MORPHINE SULFATE 4 MG/ML CPJ (NOT FOR IM USE) IV PRN (09:30)
[2019-12-26] MEDS: AZATHIOPRINE 50MG TABLET PO SCH ×2 (10:19→16:37)
[2019-12-26 15:30] VITALS: BP 159/80
== END 2019-12-26 16:55 | disposition home or self-care (01) | DRG 140 ==
LOC: ER 08:01 → 5WST 10:33 → EDBEDREQ 10:36 → EDBEDREQTM 10:36 → ENRESERV 21:41 → UNDODISIN 12-25 18:16
PROVIDERS: ADMIT Internal Medicine; ATTEND Internal Medicine
DX: J44.1 Chronic obstructive pulmonary disease with (acute) exacerbation (principal); M32.9 Systemic lupus erythematosus, unspecified; B18.2 Chronic viral hepatitis C; M54.5 Low back pain; R10.9 Unspecified abdominal pain; E11.9 Type 2 diabetes mellitus without complications; G89.4 Chronic pain syndrome; Z87.891 Personal history of nicotine dependence; Z90.49 Acquired absence of other specified parts of digestive tract; Z88.0 Allergy status to penicillin; Z88.1 Allergy status to other antibiotic agents
CPT/HCPCS: 36415; 71045; 80048; 80053; 83605; 83880; 84484; 85025; 93005; 94640; 99285; J1650; J2270; J2405; J2920; J3475; J7500